=== PATIENT | male | born 1995 | race Caucasian/White ===

== ENCOUNTER 2020-01-23 13:50 | Emergency (ER) | payer OTHER ==
[~2020-01-23] VITALS: Ht 175.2 cm; Wt 117.9 kg
[~2020-01-23 13:50] MED LIST: CYCLOBENZAPRINE10 MG PO; FIORICET 325 MG1 TAB PO; MOTRIN800 MG PO; Motrin,Rufen800 MG PO; PEPCID20 MG PO; PREDNICOT20 MG PO
== END 2020-01-23 16:00 | disposition home or self-care (01) ==
LOC: ED 13:50
DX: S63.91XA Sprain of unspecified part of right wrist and hand, initial encounter (principal); J45.909 Unspecified asthma, uncomplicated; Z88.0 Allergy status to penicillin; Z79.899 Other long term (current) drug therapy; W19.XXXA Unspecified fall, initial encounter; Y93.89 Activity, other specified; Y92.89 Other specified places as the place of occurrence of the external cause; Y99.8 Other external cause status

== ENCOUNTER → 2021-07-11 | Outpatient (CLI) | payer OTHER | END | disposition home or self-care (01) | LOC: COVID19 15:47 | PROVIDERS: ATTEND Internal Medicine | DX: U07.1 COVID-19 (principal) ==